=== PATIENT | male | born 1985 | race Caucasian/White ===

== ENCOUNTER 2018-01-04 18:23 | Emergency (ER) | payer OTHER ==
[2018-01-04] MEDS: LISSAMINE GREEN OPHTH 1.5 MG STRIP OS (22:30)
[2018-01-04] MEDS: TETRACAINE 0.5% OPHTH SOLN 4ML OS (22:30)
[2018-01-04] MEDS: ERYTHROMYCIN OPHTH OINT OS (23:00)
== END 2018-01-04 23:07 | disposition home or self-care (01) ==
LOC: M ED 18:23
DX: S05.02XA Injury of conjunctiva and corneal abrasion without foreign body, left eye, initial encounter (principal); W22.8XXA Striking against or struck by other objects, initial encounter; Y92.833 Campsite as the place of occurrence of the external cause
CPT/HCPCS: 99283

== ENCOUNTER 2024-06-17 08:34 | Emergency (ER) | payer OTHER ==
[~2024-06-17] VITALS: Ht 172.7 cm; Wt 104.0 kg
[~2024-06-17 08:34] MED LIST: ERYTOIN8 OP
[2024-06-17] MEDS ORDERED: LISI10TA24 (09:57)
[2024-06-17] MEDS ORDERED: AMPH1CAP14 (09:57)
[2024-06-17] MEDS ORDERED: LEXA1TAB2 (09:57)
[2024-06-17] MEDS: ONDANSETRON 4MG 2ML VIAL IV ONE (10:07)
[2024-06-17 10:20] LABS: BASO # 0.1 10^3/uL (0.0-0.2); BASO % 0.4 % (0.0-1.0); EOS % 0.3 % (0.0-3.0); HEMATOCRIT 50.9 % (42.0-52.0); LYMPH # 1.6 10^3/uL (1.5-5.0); MEAN CORPUSCULAR HEMOGLOBIN 30.8 pg (27.0-33.0); MEAN CORPUSCULAR HGB CONC 35.4 g/dl (32.0-36.5); MONO # 0.8 10^3/uL (0.0-0.8); MONO % 7.1 % (2.0-8.0); NEUTROPHILS # 8.9 10^3/uL (1.5-8.5); NEUTROPHILS % 77.6 % (36.0-66.0); PLATELET COUNT, AUTOMATED 345 10^3/uL (150-450); RED BLOOD COUNT 5.85 10^6/uL (4.30-6.10); WHITE BLOOD COUNT 11.5 10^3/uL (4.0-10.0)
[2024-06-17] MEDS ORDERED: ISOVUE-370 76% 100ML VIAL As Ordered ONE (10:54)
[2024-06-17] MEDS: NS (Normal Saline) 0.9% 1,000 ML IV ONE (10:58)
[2024-06-17 11:04] LABS: LIPASE 32 U/L (12-53)
[2024-06-17 11:06] LABS: ALBUMIN 4.3 G/DL (3.2-5.2); ALKALINE PHOSPHATASE 95 U/L (40-129); ALT/SGPT 27 U/L (7.0-40); AST/SGOT 17 U/L (<34); BILIRUBIN,DIRECT 0.4 MG/DL (<0.4); BILIRUBIN,TOTAL 1.4 MG/DL (0.3-1.2); BLOOD UREA NITROGEN 25 MG/DL (9-23); CALCIUM LEVEL 9.7 MG/DL (8.5-10.1); CARBON DIOXIDE LEVEL 24 MMOL/L (20-31); CHLORIDE LEVEL 97 MMOL/L (98-107); CREATININE FOR GFR 1.14 MG/DL (0.70-1.30); GLOMERULAR FILTRATION RATE > 60.0 (>60); GLUCOSE, FASTING 73 MG/DL (60-100); POTASSIUM SERUM 4.3 MMOL/L (3.5-5.1); SODIUM LEVEL 135 MMOL/L (136-145); TOTAL PROTEIN 8.2 G/DL (5.7-8.2)
[2024-06-17] MEDS ORDERED: ONDA-282 PO (12:02)
[2024-06-17 12:24] VITALS: BP 139/78; TEMP 97.4; O2SAT 98
== END 2024-06-17 13:24 | disposition home or self-care (01) ==
LOC: M ED 08:34
DX: R11.2 Nausea with vomiting, unspecified (principal); R19.7 Diarrhea, unspecified; I10 Essential (primary) hypertension
CPT/HCPCS: 74177; 80047; 80048; 80076; 83690; 85025; 96361; 96374; 99284; J2405; Q9967